=== PATIENT | female | born 1955 | race Caucasian/White ===

== ENCOUNTER → 2017-10-29 | Outpatient (CLI) | payer OTHER ==
[~2017-10-29] MED LIST: AMITRIPTYLINE H10 M1 PO; ASPIRIN EC81 M1 PO; ASPIRIN PO; CEPHALEXIN 500500 M3 PO; ELAVIL PO; ESTRACE1 MG PO; FISHOIL PO; GLUCOPHAGE500 MG PO; HYDROCODON-ACE1 EAC8 PO; HYDROCODONE-AP1 EA11 PO; HYDROCODONE-APA1 TA1 PO; LEVOTHROID PO; LEVOXYL88 MCG PO; LIDOCAINE VISC100 M1 SWISH&SPIT; LIPITOR 20 MG T20 M1 PO; LISINOPRIL10 MG PO; LISINOPRIL20 MG PO; LISINOPRIL5 MG PO; LORTAB 5-500 T1 EAC1 PO; METHADONE HCL5 MG PO; NEURONTIN 300300 M1 PO; NORCO 7.5-3251 EACH PO; OXYBUTYNIN 5 MG5 M1 PO; RELAFEN500 MG PO; VENLAFAXIN37.5 MG/1 PO; VOLTAREN GEL 1100 G2 TOP
--- NOTE | 2017-10-31 08:15 | PAINCON ---
[address] [address] PAIN MANAGEMENT CONSULTATION Name: EILEEN SIMMONS [facility] Nic#: [id number] Admission: 10/29/17 Attend Phys: Joanna Ortiz Discharge: Date of : 53 Report #: [id number] THIS REPORT FOR: //name// CC: Lamar Ovalles The patient is a 62-year-old female, long treated for RSD, right upper extremity, chronic pain syndrome requiring high risk complex medication management. The patient last seen in the pain clinic on 09/05/2017, continued on baseline medication including methadone 5 mg 1 at bedtime, hydrocodone 7.5/325 up to 4 a day. Last random drug screen approximately 1 year ago 12/11/2016, was positive for prescribed medications. The patient returns to pain clinic today for routine medication followup. 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 Today, we did again review her annual opiate consent to treat contract. This was signed and gone over with the patient. Buccal swab was accomplished today. It has been approximately 1 year since our last random drug screen (this was positive for prescribed medications and no others). The patient reports today that pain seems to be increasing somewhat with activity, increased activity over the holidays. She has had increasing burning dysesthesia in her wrist and hand. Unfortunately, she fell, simply tripped on the stairs and did possibly fracture her right third toe, had some significant ecchymosis in this area. She also bruised her right shoulder. There is some resolving ecchymosis more of a wilks tinge in that area. Slight decreased range of motion of the shoulder, did exacerbate some pain in the chronic right forearm where she has RSD type symptoms. Overall, the patient rates the pain a 2-3 on VAS with current medication. Again, after the fall 2 weeks ago, pain was worse. PHYSICAL EXAMINATION: Shows 4 feet 11 inches, 156 pounds female, BMI is 31.8 kilograms per meter squared. Blood pressure respirations 16. Alert and oriented to person, place and time, judged to be a reasonable historian. Cervical range of motion is full. Again, some ecchymosis over the right shoulder. Slight decreased range of motion in all [place] [address] PAIN MANAGEMENT CONSULTATION Name: EILEEN SIMMONS Room: [facility]#: [id number] Admission: 10/29/17 Attend Phys: Joanna Ortiz Discharge: Date of : 53 Report #: [id number] hyperpathia in the right wrist and forearm. Hand grasp is diminished on this side. Otherwise, modest endomorphic built. Gait is tandem. Alert and oriented to person, place and time. Does not use tobacco products. We reviewed the fact that opiate medications are being used to provide analgesia adequate to support activities of daily living, not attempting to achieve a specific pain score on the 0-10 Visual Analog Scale. The current opiate medications are providing sufficient analgesia to allow the patient to participate in activities of daily living. The patient is not exhibiting any aberrant behavior suggestive of drug diversion. The patient is not having any adverse reactions to medications. The patient is not suffering from daytime somnolence or mental acuity changes. The patient is managing opiate-induced constipation with appropriate iscw-dxb-bqeisot agents and dietary considerations. The patient was counseled on concern for caution with operating a motor vehicle while using opiate medications. A physical exam was performed and the patient's functional status was evaluated. All patients with back pain were advised against the bed rest greater than 4 days and were advised to return to normal activities. Pain score assessment was noted and the treatment plan was reviewed with the patient. All current medications, both prescribed and OTC were reviewed and reconciled on the electronic medical record. Tobacco screening was accomplished and smoking cessation was advised when indicated. BMI was noted and diet/exercise modification was recommended for all patients following outside normal parameters. I reviewed with the patient today their responsibilities to safeguard prescription medications, reviewed their responsibility to utilize medications only as prescribed by the physician. They are to seek and receive pain medications only from 1 physician group ( [facility]). They are to use 1 pharmacy and keep the clinic informed if they change pharmacies. Their responsibilities include making followup visits in a timely fashion and to avoid abrupt discontinuation of medication usage. Their responsibilities further include bringing their medications (bottles from the pharmacy with residual pills) to the visit for possible confirmation of pill counts and the patient understands it is their responsibility to submit to random drug screens to ensure both that the medications prescribed are present, and that no other controlled substances are present. All prescriptions provided today were generated electronically. ASSESSMENT: Neuropathic pain, right upper extremity, requiring high risk complex medication management. RECOMMENDATION: 1. We reviewed the SOAPP version 1.0. The patient scores 1. 2. Again, buccal drug swab, and we renewed her annual opiate consent to treat contract. [address] [address] PAIN MANAGEMENT CONSULTATION Name: EILEEN SIMMONS Room: [facility]#: [id number] Admission: 10/29/17 Attend Phys: Joanna Ortiz Discharge: Date of : 53 Report #: [id number] 3. We reviewed the paperwork from [place], noting that the patient has trouble reaching overhead, relatively unchanged from medications. We were queried whether I have followed patient's prescription monitoring program, unfortunately [place] is the only critical access hospital out of all that does not have a PNP. I have checked and there are no medications filled in the [place] site. I am not concerned at this time about opiate misuse. Again, the patient's score is low on the SOAPP questionnaire, and she has exhibited no aberrant behavior suggestive of drug diversion and has not had any early release request. The patient has been on methadone since 2008. Higher doses caused cognitive impairment. Lower doses had lack of efficacy. The patient has fallen i.e., the trip 2 weeks ago, though this is unrelated to cognitive changes with simply trip over an object on the stair. We will return to [place], they requested documentation. A specific answer to my attempting to wean her methadone dose or hydrocodone dose, the answers are no. We have trialled in the past with decreased functional ability and increased pain. She still scores because she is taking well below the 90 mEq of morphine dosing ceiling recommendations. Discharged in good and stable condition after approximately 30 minutes spent face to face with the patient, greater than 50% of time spent counseling the patient regarding appropriate use of medications and reviewing requested documentation. <ELECTRONICALLY SIGNED> By: Nadir Ovalels DO 10/31/17 0815 0756 [facility] Ovalles DO /rob
== END ==
LOC: M.PC 02:03
DX: G89.4 Chronic pain syndrome (principal); G90.511 Complex regional pain syndrome I of right upper limb; M79.1 Myalgia; Z79.899 Other long term (current) drug therapy

== ENCOUNTER → 2017-12-24 | Outpatient (CLI) | payer OTHER ==
--- NOTE | 2017-12-25 10:21 | PAINCON ---
[address] [address] PAIN MANAGEMENT CONSULTATION Name: EILEEN SIMMONS Room: [facility] Nic#: [id number] Admission: 12/24/17 Attend Phys: Joanna Ortiz Discharge: Date of : 53 Report #: [id number] THIS REPORT FOR: //name// CC: Lamar Ovalles DATE OF SERVICE: 12/24/2017 HISTORY OF PRESENT ILLNESS: The patient is a 62-year-old female typically treated for right upper extremity CRPS, neuropathic pain requiring complex medication management. Last seen in the pain clinic on 10/29/2017. The patient was continued on baseline medication including methadone 5 mg 1-2 at bedtime, hydrocodone 7.5/325 one tablet 3-4 times a day, limit 100 tablets for 30 days. Last visit, I had spent a good deal of time filling out paperwork for the patient's third green party management company [employer]. This was submitted 12/06/2017. I did a uhjg-hg-spag as well. We did receive a correspondence on 12/09/2017 noting that her insurance provider had approved her current medication including methadone 5 mg 1-2 at bedtime, hydrocodone 7.5/325 up to 4 a day. I have pointed out she had been on high dose of opiates back in 2008. High doses had caused cognitive impairment. Lower doses cause lack of efficacy. She is well below the 90 mEq of morphine ceiling dose recommendations. Current medications are enabling the patient to participate in activities of daily living. She has an opiate consent to treat contract, signed and reviewed annually. Last random drug screen on 08/27/2017 was positive for prescribed medications. The patient returns to the pain clinic today. We again had a prolonged visit reviewing therapeutic options. The patient was quite distressed as she received written note from [employer] who I assumed is the pharmacy provider stating that they question the patient's current medication. The patient today tells me again pain is generally well controlled with current medication. She continues to be physically active. She is a primary homemaker. She is seen in company of her who is supportive. 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 She does some chores around the farm as well. She notes, however, that right shoulder and arm is problematic primarily after activity. She has hyperpathia, allodynia about the right forearm and hand. She uses ice in the upper arm when pain becomes problematic. She rates the pain anywhere from 2-8 on a VAS. PHYSICAL EXAMINATION: GENERAL: Shows 4 feet 11 inches, 160-pound female, BMI is 31.6 kilograms per meter squared. VITAL SIGNS: Blood pressure 127/83, pulse 74, [place]ir[place] 18. [place] [address] PAIN MANAGEMENT CONSULTATION Name: EILEEN SIMMONS Room: [facility]#: [id number] Admission: 12/24/17 Attend Phys: Joanna Ortiz Discharge: Date of : 53 Report #: [id number] NEUROLOGIC: Alert and oriented to person, place and time, judged to be a reasonable historian. MUSCULOSKELETAL: Cervical range of motion is full. Right upper extremity has fairly good range of motion in the shoulder, slightly diminished at the elbow and wrist, though she is able to supinate and pronate. Does have some hyperpathia, allodynia about the palmar aspect of the hand, a little bit on the dorsum as well. Nails are intact. There are moderate skin changes, a little bit of dystrophy noted in the thenar eminence. Tinel's is negative. We reviewed the fact that opiate medications are being used to provide analgesia adequate to support activities of daily living, not attempting to achieve a specific pain score on the 0-10 Visual Analog Scale. The current opiate medications are providing sufficient analgesia to allow the patient to participate in activities of daily living. The patient is not exhibiting any aberrant behavior suggestive of drug diversion. The patient is not having any adverse reactions to medications. The patient is not suffering from daytime somnolence or mental acuity changes. The patient is managing opiate-induced constipation with appropriate wyry-pxa-woijdcc agents and dietary considerations. The patient was counseled on concern for caution with operating a motor vehicle while using opiate medications. A physical exam was performed and the patient's functional status was evaluated. All patients with back pain were advised against the bed rest greater than 4 days and were advised to return to normal activities. Pain score assessment was noted and the treatment plan was reviewed with the patient. All current medications, both prescribed and OTC were reviewed and reconciled on the electronic medical record. Tobacco screening was accomplished and smoking cessation was advised when indicated. BMI was noted and diet/exercise modification was recommended for all patients following outside normal parameters. I reviewed with the patient today their responsibilities to safeguard prescription medications, reviewed their responsibility to utilize medications only as prescribed by the physician. They are to seek and receive pain medications only from 1 physician group ( [facility]). They are to use 1 pharmacy and keep the clinic informed if they change pharmacies. Their responsibilities include making followup visits in a timely fashion and to avoid abrupt discontinuation of medication usage. Their responsibilities further include bringing their medications (bottles from the pharmacy with residual pills) to the visit for possible confirmation of pill counts and the patient understands it is their responsibility to submit to random drug screens to ensure both that the medications prescribed are present, and that no other controlled substances are present. All prescriptions provided today were generated electronically. ASSESSMENT: Neuropathic pain, right upper extremity requiring complex [facility] [address] [place] [address] PAIN MANAGEMENT CONSULTATION Name: EILEEN SIMMONS Jonathan Room: [facility]#: [id number] Admission: 12/24/17 Attend Phys: Joanna Ortiz Discharge: Date of : 53 Report #: [id number] medication management, stable on baseline medication. RECOMMENDATIONS: After a prolonged discussion with the patient today, greater than 50% of the 25-minute visit spent reviewing therapeutic options and discussing multiple correspondences from the patient's medical insurance claims specialist, we have elected to continue baseline medication unchanged including methadone 5 mg 1-2 at bedtime, hydrocodone 7.5/325, limit 100 tablets for 30 days. Again, reviewed last random drug screen on 11/26/2017 positive for prescribed medications. Discharged in good and stable condition. <ELECTRONICALLY SIGNED> By: Nadir Ovalles DO 12/25/17 1021 [id number] Ovalles DO /nt
== END ==
LOC: M.PC 03:37
DX: G90.511 Complex regional pain syndrome I of right upper limb (principal); M79.2 Neuralgia and neuritis, unspecified; Z79.899 Other long term (current) drug therapy

== ENCOUNTER → 2018-02-18 | Outpatient (CLI) | payer OTHER | LOC: M.RAD 07:33 | DX: Z12.31 Encounter for screening mammogram for malignant neoplasm of breast (principal) ==

== ENCOUNTER → 2018-02-18 | Outpatient (CLI) | payer OTHER ==
--- NOTE | 2018-02-19 09:37 | PAINCON ---
[address] [address] PAIN MANAGEMENT CONSULTATION Name: EILEEN SIMMONS [id number] Admission: 02/18/18 Attend Phys: Joanna Ortiz Discharge: Date of : 53 Report #: [id number] THIS REPORT FOR: //name// CC: Lamar Ovalles A 62-year-old female long treated for RSD, right upper extremity. 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 Subsequently, had right rotator cuff repair in 05/2008. Unfortunately, this failed and she had a revision in 07/2008. She has had ongoing neuropathic hyperpathia and allodynia in the right forearm radial aspect into the thumb since that time. She has significant limitation of right shoulder range of motion. Abduction is down to about 45 degrees. Extension is down to about 50 degrees. She has been stable on low dose opiate analgesics including methadone 5 mg 1 to 2 at bedtime, Voltaren gel topically, gabapentin 300 mg t.i.d., hydrocodone 7.5/325 one tablet up to 4 times a day, though she does use this on a nondaily basis. She returns to pain clinic today noting subjective pain score is 4-5 on a VAS. PHYSICAL EXAMINATION: Relatively unchanged, 4 feet, 11 inches, 157 pounds female, BMI is 31 kilograms per meter squared. Blood pressure 123/62, pulse 67, respirations 16. Cervical range of motion is full. Right arm again limited range of motion of the shoulder, 45 degrees abduction and 50 degrees extension. Hyperpathia and allodynia about the forearm down to the wrist and hand though she does have preserved strength in the biceps, triceps and wrist extension. Resistance testing; however, does exacerbate pain with light touch allodynia. Skin integument is, however, intact. We reviewed the fact that opiate medications are being used to provide analgesia adequate to support activities of daily living, not attempting to achieve a specific pain score on the 0-10 Visual Analog Scale. The current opiate medications are providing sufficient analgesia to allow the patient to participate in activities of daily living. The patient is not exhibiting any aberrant behavior suggestive of drug diversion. The patient is not having any adverse reactions to medications. The patient is not suffering from daytime somnolence or mental acuity changes. The patient is managing opiate-induced constipation with appropriate croh-mso-ndtfunb agents and dietary considerations. The patient was counseled on concern for caution with operating a motor vehicle while using opiate medications. A physical exam was performed and the patient's functional status was evaluated. All patients with back pain were advised against the bed rest greater than 4 days and were advised to return to normal activities. Pain score assessment was noted and the treatment plan was reviewed with [place] [address] PAIN MANAGEMENT CONSULTATION Name: EILEEN SIMMONS Room: [facility]#: [id number] Admission: 02/18/18 Attend Phys: Joanna Ortiz Discharge: Date of : 53 Report #: [id number] medications, both prescribed and OTC were reviewed and reconciled on the electronic medical record. Tobacco screening was accomplished and smoking cessation was advised when indicated. BMI was noted and diet/exercise modification was recommended for all patients following outside normal parameters. I reviewed with the patient today their responsibilities to safeguard prescription medications, reviewed their responsibility to utilize medications only as prescribed by the physician. They are to seek and receive pain medications only from 1 physician group ( [facility]). They are to use 1 pharmacy and keep the clinic informed if they change pharmacies. Their responsibilities include making followup visits in a timely fashion and to avoid abrupt discontinuation of medication usage. Their responsibilities further include bringing their medications (bottles from the pharmacy with residual pills) to the visit for possible confirmation of pill counts and the patient understands it is their responsibility to submit to random drug screens to ensure both that the medications prescribed are present, and that no other controlled substances are present. All prescriptions provided today were generated electronically. ASSESSMENT: Neuropathic pain, right upper extremity, status post rotator cuff tear surgery and disability. RECOMMENDATION: Continue hydrocodone 7.5/325 one tablet 3-4 times a day, limit 100 tablets. I have taken the liberty of writing for 2 months of current medication. Continue methadone 5 mg 1 to 2 at bedtime, limit 60 tablets. Again taken the liberty of writing for 2 months of current medication. Follow up at that time. I did discuss with the patient that I will be leaving the practice. We will endeavor to find another treating physician for her. Discharged in good and stable condition. <ELECTRONICALLY SIGNED> By: Nadir Ovalles DO 02/19/18 0937 [id number] Ovalles DO /nt
== END ==
LOC: M.PC 04:38
DX: G90.511 Complex regional pain syndrome I of right upper limb (principal); M79.2 Neuralgia and neuritis, unspecified; Z98.890 Other specified postprocedural states

== ENCOUNTER → 2018-04-15 | Outpatient (CLI) | payer OTHER ==
--- NOTE | 2018-04-16 07:56 | PAINCON ---
[facility] [address] [place] [address] PAIN MANAGEMENT CONSULTATION Name: EILEEN SIMMONS [id number] Admission: 04/15/18 Attend Phys: Joanna Ortiz Discharge: Date of : 53 Report #: [id number] THIS REPORT FOR: //name// CC: Lamar Ovalles DATE OF SERVICE: 04/15/2018 HISTORY OF PRESENT ILLNESS: The patient is a 62-year-old female, long treated for CRPS, right upper extremity requiring complex medication management. The patient had initial injury in the hospital requiring rotator cuff repair in 05/2008. Unfortunately, she required a subsequent revision 2 months later in 07/2008. Developed hyperpathia, allodynia and diaphoresis in the right upper extremity. He has been treated for RSD since that time. Last seen in pain clinic on 02/18/2018. Continued on methadone 5 mg 1-2 at bedtime, gabapentin 300 mg t.i.d. and hydrocodone 7.5/325 up to 3-4 a day. The patient is stable on his medications. No problems with daytime somnolence, mental acuity changes, constipation. To her credit, she continues to be quite physically active. 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 She also does a fair bit of gardening. Right upper extremity actually does not have any significant dystrophy, though she does have some hyperpathia and allodynia about the forearm and wrist. PHYSICAL EXAMINATION: GENERAL: Otherwise shows a pleasant 62-year-old female, alert and oriented to person, place and time, judged to be a reasonable historian. VITAL SIGNS: Stable, blood pressure 129/78, pulse 68, respirations 16, BMI is approximately 24 kilograms per meter squared. MUSCULOSKELETAL: Subjective pain score is 3 on a VAS. Does have a little pain in her left knee, though this appears to be some modest arthritis. No ballottable edema is noted. We reviewed the fact that opiate medications are being used to provide analgesia adequate to support activities of daily living, not attempting to achieve a specific pain score on the 0-10 Visual Analog Scale. The current opiate medications are providing sufficient analgesia to allow the patient to participate in activities of daily living. The patient is not exhibiting any aberrant behavior suggestive of drug diversion. The patient is not having any adverse reactions to medications. The patient is not suffering from daytime somnolence or mental acuity changes. The patient is managing opiate-induced constipation with appropriate [id number] agents and dietary considerations. The patient was counseled on concern [place] [address] PAIN MANAGEMENT CONSULTATION Name: EILEEN SIMMONS Room: [facility]#: [id number] Admission: 04/15/18 Attend Phys: Joanna Ortiz Discharge: Date of : 53 Report #: [id number] a motor vehicle while using opiate medications. A physical exam was performed and the patient's functional status was evaluated. All patients with back pain were advised against the bed rest greater than 4 days and were advised to return to normal activities. Pain score assessment was noted and the treatment plan was reviewed with the patient. All current medications, both prescribed and OTC were reviewed and reconciled on the electronic medical record. Tobacco screening was accomplished and smoking cessation was advised when indicated. BMI was noted and diet/exercise modification was recommended for all patients following outside normal parameters. I reviewed with the patient today their responsibilities to safeguard prescription medications, reviewed their responsibility to utilize medications only as prescribed by the physician. They are to seek and receive pain medications only from 1 physician group ( [facility]). They are to use 1 pharmacy and keep the clinic informed if they change pharmacies. Their responsibilities include making followup visits in a timely fashion and to avoid abrupt discontinuation of medication usage. Their responsibilities further include bringing their medications (bottles from the pharmacy with residual pills) to the visit for possible confirmation of pill counts and the patient understands it is their responsibility to submit to random drug screens to ensure both that the medications prescribed are present, and that no other controlled substances are present. All prescriptions provided today were generated electronically. ASSESSMENT: Neuropathic pain, right upper extremity, complex regional pain syndrome type 1, requiring complex medication management. RECOMMENDATIONS: Continue gabapentin 300 mg t.i.d., methadone 5 mg 1-2 at bedtime with hydrocodone 7.5/325 one tablet 3-4 times a day. I have taken the liberty of writing for 2 months of current medication. Suggested the patient contact Daniel, this is her disability managing entity. She will need to find another pain physician to manage her chronic medication use for pain. I am moving out of the treatment area. Again, the patient was given 2 months of current medication; this should be quantity sufficient for her worker's comp managing entity to find a new physician. <ELECTRONICALLY SIGNED> By: Nadir Ovalles DO 04/16/18 [id number] Ovalles DO /nt
== END ==
LOC: M.PC 04:14
DX: G90.511 Complex regional pain syndrome I of right upper limb (principal); M79.2 Neuralgia and neuritis, unspecified; Z79.899 Other long term (current) drug therapy

== ENCOUNTER → 2018-07-07 | Outpatient (CLI) | payer OTHER ==
--- NOTE | 2018-08-10 10:00 | PAINCON ---
[address] [address] PAIN MANAGEMENT CONSULTATION Name: SIMMONSEILEEN L [id number] Admission: 07/07/18 Attend Phys: Willa Yip MD Discharge: Date of : 53 Report #: [id number] THIS REPORT FOR: //name// CC: Lamar Yip DATE OF SERVICE: 07/07/2018 CHIEF COMPLAINT: Chronic regional pain syndrome involving the right arm. 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 After the patient delivered a baby, she assisted in rolling the patient from the operating room bed to the patient's bed. She noticed a pop, had pain and discomfort. Seen in the Emergency Room, was found to have some damage to her right shoulder. She underwent shoulder surgery. Noticed that the pain continued to be problematic. After additional evaluation in July of that year, she underwent a second surgery. States that the shoulder had "busted open." Since that time, she has developed reflex sympathetic dystrophy involving her right arm. She has recently undergone tooth extractions in the upper and lower portion of her mouth. This was about 2 weeks ago. She is contemplating getting some dentures. She feels that gabapentin as well as the Voltaren cream to her shoulders are quite beneficial. She was taking methadone. Because of the impending oral surgery, she stopped her methadone. Feels that she has weaned herself from this. Over 10-day period of time, she noticed some "rough times, but feels that she has gotten past that stage." At this juncture, she would only like to continue with hydrocodone. She states that she continues to be quite busy. 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 Tries to continue to move her frozen shoulder. Overall, things are going reasonably well and she would like to have her medications renewed. ALLERGIES: TETRACYCLINE, PEACH, STRAWBERRY. MEDICATIONS: 1. Lipitor 20 mg. 2. Voltaren gel 1% to the right shoulder area 4 times daily, which is quite helpful. 3. Neurontin 300 mg t.i.d. 4. Hydrocodone 7.5/325. 5. Levothyroxine 0.088 mg. 6. Zestril 5 mg. 7. Glucophage 500 mg b.i.d. 8. Oxybutynin 5 mg b.i.d. 9. Effexor [place] 37.5 [place] [address] PAIN MANAGEMENT CONSULTATION Name: TROYEILEEN L Room: [facility]#: [id number] Admission: 07/07/18 Attend Phys: Willa Yip MD Discharge: Date of : 53 Report #: [id number] PAST MEDICAL HISTORY: 1. Chronic regional pain syndrome, right shoulder. 2. Hypothyroidism. 3. Diabetes. 4. Hypertension. PAST SURGICAL HISTORY: The patient states that she had 13 surgeries. They include appendectomy, breast mass in 1984, hysterectomy in 1980, left knee in 2005, cholecystectomy 2000, bladder sling in 1996 and 2004, rotator cuff x 2 in 06/24/2008 and second surgery in 08/17/2008. SOCIAL HISTORY: She was an floor technician. REVIEW OF SYSTEMS: As per HPI. LABORATORY DATA: No new laboratory values are available at the time of our interview. PAIN CLINIC ASSESSMENT: 1. Osteoarthritic changes involving her right shoulder. Osteoarthritis, the patient is not being treated for osteoarthritis. 2. Height is 4 feet 11 inches, weight 155 pounds, BMI is 33. 3. Vital signs: Blood pressure 140/79, heart rate 65, respiratory rate 16, room air saturation 97%, temperature 97.9. 4. Pain clinic assessment is 02/03. 5. Fall risk. The patient has not fallen in the last 3 months. 6. Blood thinner. The patient is on her blood thinning medication. 5. Hypertension. The patient is being treated for hypertension. 6. Opioid therapy greater than 6 weeks. The patient does receive medications through the pain clinic and gets it from [facility]. 7. Risk assessment tool. 8. Functional assessment tool. 9. Recreational drug use. The patient denies use of recreational drugs. 10. Tobacco: The patient is not smoking. 11. Alcohol. The patient does not use alcohol on a frequent basis. PHYSICAL EXAMINATION: GENERAL: The patient is a well-developed, well-nourished female. She appears her stated age. She is alert and oriented x 3. Affect is appropriate. Speech is fluent. HEENT: Normocephalic, atraumatic. Extraocular eye muscles intact. Sclerae nonicteric. Mucous membranes are moist. The patient has had surgery with removal of upper as well as lower teeth. NECK: Without JVD or adenopathy. The patient's left arm strength is judged to be 5/5 for the major muscle groups. The right arm is decreased 4/5 [place] [address] PAIN MANAGEMENT CONSULTATION Name: EILEEN SIMMONS Room: [facility]#: [id number] Admission: 07/07/18 Attend Phys: Willa Yip MD Discharge: Date of : 53 Report #: [id number] strength. The patient has limited ability to abduct her arm. She is unable to abduct it to horizontal to the floor. Notes some decreased range of motion, carries her right arm in a somewhat dependent position with hanging to her side. IMPRESSION: 1. Chronic regional pain syndrome involving the right arm. 2. Chronic regional pain syndrome, right shoulder. 3. Hypothyroidism. 4. Diabetes. 5. Hypertension. RECOMMENDATIONS: We discussed treatment options with the patient. At this juncture, she feels that the methadone medication is not needed. She would like to continue with the hydrocodone. We will re-write the hydrocodone medication as well as the patient will continue with gabapentin. She finds that the Voltaren gel works quite well. We would recommend that she continue this and that it gives her more pain relief than oral medications at this juncture. She will follow up in the future as needed. A script for 3 months of medication has been written. She will call us if she has any problems. We would like to thank you for letting us participate in her care. We hope she continues to improve. <ELECTRONICALLY SIGNED> By: Willa Yip MD 08/10/18 [id number]. Manuel Yip MD /nt
== END ==
LOC: M.PC 04:47
DX: G90.511 Complex regional pain syndrome I of right upper limb (principal); I10 Essential (primary) hypertension; E11.9 Type 2 diabetes mellitus without complications; E03.9 Hypothyroidism, unspecified; Z79.899 Other long term (current) drug therapy

== ENCOUNTER → 2018-10-06 | Outpatient (CLI) | payer OTHER ==
--- NOTE | ~2018-10-06 | PAINCON ---
[address] [address] PAIN MANAGEMENT CONSULTATION Name: TROYEILEEN L [facility] [id number] Admission: 10/06/18 Attend Phys: Willa Yip MD Discharge: Date of : 53 Report #: [id number] THIS REPORT FOR: //name// CC: Lamar Yip DATE OF SERVICE: 10/06/2018 HISTORY: The patient is a 63-year-old female who has been followed in the pain clinic. As you may recall, she has had some problems with her right arm. 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 After the delivery, she the patient to the operating room cart. Noticed a pop in her arm. Continued to have pain and problems with her right shoulder since that time. Continues to have pain and rates it as a 7/10 at this juncture. Continues to try to move her arm in all ranges of motion. Has had surgery on her shoulder as you may recall. Has developed reflex sympathetic dystrophy type problems in her right arm. Continues to note some swelling in her arm, some swelling down in her hands. The patient feels the gabapentin and Voltaren cream are still helpful and beneficial. Continues to find methadone efficacious. She feels that the hydrocodone at this juncture is helpful. She is no longer taking the methadone. Feels that the medications are helpful. She is aware that the opioid medications can be problematic burnisher, she did note some difficulty with getting off the methadone. At this point, she would like to continue with her medication. [facility]. Has not had any problem with her current medications. States that fallen. She fell off the ladder putting up some Lesly items. Also, states that she fell down from stairs. Continues to use hot and cold packs to the affected area. ALLERGIES: TETRACYCLINE, PEACHES, STRAWBERRY. MEDICATIONS: 1. Lipitor 20 mg. 2. Voltaren gel 1% to the right shoulder area 4 times daily. 3. Neurontin 300 mg t.i.d. 4. Hydrocodone 7.5/325 mg. 5. Levothyroxine 0.088 mg. 6. Zestril 5 mg. 7. Glucophage 500 mg b.i.d. 8. Oxybutynin 5 mg b.i.d. 9. Effexor 37.5 mg. PAIN CLINIC ASSESSMENT/PQRS: 1. The patient has some changes involving the right shoulder with some arthritic changes. The patient is not being [place] [address] PAIN MANAGEMENT CONSULTATION Name: EILEEN SIMMONS Room: [facility]#: [id number] Admission: 10/06/18 Attend Phys: Willa Yip MD Discharge: Date of : 53 Report #: [id number] 2. Height 4 feet 11 inches, weight 157 pounds, BMI 31.8. 3. Vital Signs: Blood pressure 130/29, heart rate 82, respiratory rate 16, room air saturation 94%, temperature 98.2. 4. Pain intensity 7/10. 5. The patient has fallen on 2 occasions. States that she fell down a ladder putting up the Budding [employer]ologist ornaments. 6. Fell down some stairs. Has not sought medical attention. 7. Blood thinner. The patient is not on a blood thinning medication. 8. Hypertension. The patient has been treated for hypertension. 9. Opioid greater than 6 weeks. The [facility]. 10. Risk assessment tool, low for opioid use. 11. Functional assessment tool. 12. Recreational drug use: The patient denies. 13. Tobacco: The patient denies use of tobacco. 14. Alcohol. The patient rarely uses alcoholic beverages. PHYSICAL EXAMINATION: GENERAL: The patient is a well-developed, well-nourished female, appears her stated age. She is alert and oriented x 3. Affect is appropriate. Speech is fluent. HEENT: Normocephalic, atraumatic. Extraocular muscles intact. Sclerae nonicteric. Mucous membranes are moist. NECK: Without adenopathy or JVD. The patient has some pain and discomfort in the right shoulder with pain radiating down into her shoulder. Notes some swelling in the right arm as well as down in the right hand. Muscle strength in the right side judged to be 4+/5, left arm 5/5. Lower extremity muscle strength is judged to be 5/5 for the major muscle groups. The patient continues to carry her right arm in a dependent position at her side. IMPRESSION: 1. Chronic regional pain syndrome involving the right arm. 2. Chronic regional pain syndrome, right shoulder. 3. Hypothyroidism. 4. Diabetes. 5. Hypertension. RECOMMENDATIONS: We discussed treatment options with the patient. Risks and benefits of continued opioid medication use were discussed. They include possibility of dependence as well as tolerance. The patient overall feels that things are going reasonably well. She would like to continue with her medications. She has some pain and discomfort involving her left knee, which she states is popping. She is going to see an orthopedic surgeon in the near [address] [address] PAIN MANAGEMENT CONSULTATION Name: SIMMONSEILEEN Room: [facility] Nic#: [id number] Admission: 10/06/18 Attend Phys: Willa Yip MD Discharge: Date of : 53 Report #: [id number] future. We would like to thank you for letting us participate in her care. We hope she continues to improve. By: [id number]. Manuel Yip MD /PMT
== END ==
LOC: M.PC 09-29 09:20
DX: G90.511 Complex regional pain syndrome I of right upper limb (principal); E03.9 Hypothyroidism, unspecified; I10 Essential (primary) hypertension; E11.9 Type 2 diabetes mellitus without complications

== ENCOUNTER → 2018-12-29 | Outpatient (CLI) | payer OTHER ==
--- NOTE | ~2018-12-29 | PAINCON ---
[address] [place] [address] [address] PAIN MANAGEMENT CONSULTATION Name: TROYEILEEN RADHA Room: [facility] Lucero#: [id number] Admission: 12/29/18 Attend Phys: Willa Yip MD Discharge: Date of : 53 Report #: [id number] THIS REPORT FOR: //name// CC: Lamar Yip DATE OF SERVICE: 12/29/2018 CHIEF COMPLAINT: "I am still having pain in my left arm." HISTORY OF PRESENT ILLNESS: The patient is a 63-year-old female who has been followed in the Pain Clinic. She has pain in her right shoulder as well as some left knee pain. She has a new pain in the left shoulder area. Approximately 3 weeks ago, she noticed onset of this pain and discomfort. It is running down into her left elbow. She has some trepidation about having it evaluated. She is afraid that she may have to undergo an MRI. She barely was able to undergo an MRI for the right shoulder. Rates her pain as a 10/10 at this juncture. Has limited movement of her arm. As you may recall, she developed reflex sympathetic dystrophy of her right arm. This was while moving a patient. The patient was pulled from one side of the table to the other. She soon noticed a popping sensation in her arm. After that, she has been plagued by chronic right arm pain and has noted some left arm pain over the last 3 weeks. Feels that her medications are helpful. She did try methadone in the past. Has weaned off this medication and she elects not to use it. Finds that hydrocodone, Voltaren and gabapentin are beneficial. She has returned today with a desire to renew these medications. ALLERGIES: TETRACYCLINE, PEACHES, STRAWBERRY. CURRENT MEDICATIONS: Lipitor 20 mg, Voltaren gel 1% to the right shoulder area 4 times daily, Neurontin 300 mg t.i.d., hydrocodone 7.5 mg, levothyroxine 0.088 mg, Zestril 5 mg, Glucophage 500 mg b.i.d., oxybutynin 5 mg b.i.d., Effexor 37.5. PAIN CLINIC ASSESSMENT/PQRS: 1. The patient has changes involving the right shoulder with arthritic changes. The patient is not being treated for rheumatoid arthritis. 2. Height 4 feet 11 inches, weight 162 pounds, BMI is 32.3. 3. Vital Signs: Blood pressure 133/40, heart rate 82, respiratory rate 16, room air saturation is 96%, temperature 98.1. Pain intensity 10/10. 4. Fall risk. The patient has not fallen in the last 3 months. 5. Blood thinner. The patient is not on a blood thinning medication. 6. Hypertension. The patient is being treated for hypertension. 7. Opiates greater than 6 weeks. The patient [facility]. 8. Risk assessment tool, [place] [address] PAIN MANAGEMENT CONSULTATION Name: EILEEN SIMMONS Room: [facility]#: [id number] Admission: 12/29/18 Attend Phys: Willa Yip MD Discharge: Date of : 53 Report #: [id number] 9. Functional assessment tool. 10. Recreational drug use. The patient denies use of recreational drugs. 11. Tobacco: The patient denies use of tobacco. 12. Alcohol. The patient rarely uses alcoholic beverages. PHYSICAL EXAMINATION: GENERAL: The patient is a well-developed, well-nourished appearing female who is alert and oriented x 3. HEENT: Normocephalic, atraumatic. Extraocular eye muscles are intact. Sclerae nonicteric. Mucous membranes are moist. NECK: Without adenopathy or JVD. The patient has pain and discomfort in the right arm. Has limited range of motion in the left arm. Notes that there is pain between the area of expansion of the biceps from the arm to the shoulder area. Has some difficulty in rotating her arm in a circular motion as though she was polishing a car. IMPRESSION: 1. Chronic regional pain syndrome involving the right arm. 2. Chronic regional pain syndrome involving the right shoulder, new onset of pain and discomfort in the left arm. 3. Hypothyroidism. 4. Diabetes. 5. Hypertension. RECOMMENDATIONS: We discussed treatment options with the patient. At this juncture, we will continue with her hydrocodone 7.5 mg 1 p.o. q.i.d. She will also continue with Voltaren gel to the affected area and continue with gabapentin 300 mg p.o. t.i.d. A script for these medications have been rewritten. The patient will call us if she has any concerns. We have encouraged her to follow up with her orthopedic surgeon. Possibility of damage to her left shoulder area might be significant. We would recommend that she see him early rather than continue to do other activities and find that an earlier intervention would have been more beneficial. She states that she would. We explained that sometimes use of an open MRI can be beneficial. This might be an option for the patient should her MRI be needed. Sometimes open MRIs have less resolution than traditional MRIs. We would like to thank you for letting us participate in her care. We hope she continues to improve. By: [id number]. Manuel Yip MD /rob
== END ==
LOC: M.PC 10:00
DX: G89.4 Chronic pain syndrome (principal); I10 Essential (primary) hypertension; E11.9 Type 2 diabetes mellitus without complications; E03.9 Hypothyroidism, unspecified

== ENCOUNTER → 2019-04-22 | Outpatient (CLI) | payer OTHER ==
--- NOTE | 2019-04-28 14:27 | PAINCON ---
[address] [address] PAIN MANAGEMENT CONSULTATION Name: SIMMONSEILEEN RADHA Room: [facility] CECY Lucero#: [id number] Admission: 04/22/19 Attend Phys: Willa Yip MD Discharge: Date of : 53 Report #: [id number] THIS REPORT FOR: //name// CC: Lamar Yip DATE OF SERVICE: 04/22/2019 CHIEF COMPLAINT: Pain in the right shoulder, left knee as well. HISTORY: This patient is a 63-year-old female who has been followed in the pain clinic. As you recall, she has pain in her right shoulder. She has some pain in her left knee. She has pain in the right shoulder. She is considering options. At this point, she may need an MRI. She states that it costs $350 co-pay. She is not able to pay that at this juncture. Rates her pain as a 6/10. Normally, the pain can be as low as 2/10. She has history of reflex sympathetic dystrophy in her right arm. She was injured while moving a patient. States that she was on one side of the bed. She then helped to pull the patient and slide the patient to her bed. She notes a popping sensation in her arm. She has had pain and chronic discomfort since that time. She feels that her medications of hydrocodone and Voltaren in conjunction with gabapentin are helpful. She has returned today for renewal of her medications. She forgot when her last appointment was scheduled. As a result, she had to "stretch her medication use." She took her last pill this morning. This is why she has a pain radiating to 6/10. ALLERGIES: TETRACYCLINE, PEACHES, STRAWBERRIES. MEDICATIONS: Lipitor 20 mg, Voltaren gel 1% to the right shoulder area 4 times daily, Neurontin 300 mg t.i.d., hydrocodone 7.5 mg, levothyroxine 0.088 mg, Zestril 5 mg, Glucophage 50 mg b.i.d., oxybutynin 5 mg b.i.d., Effexor 37.5. PAIN CLINIC ASSESSMENT/PQRS: 1. The patient has changes involving her right arm secondary to arthritis. The patient is not being treated for rheumatoid arthritis. 2. Height 5 feet 4 inches, weight 156 pounds, BMI 31.5. 3. Vital Signs: Blood pressure 125/53, heart rate 81, respiratory rate 16, room air saturation 92%, temperature 97.9. 4. Pain intensity 6/10. 5. Fall history: The patient has not fallen in the last 3 months. 6. Blood thinner. The patient is not on a blood thinning medication. 7. Hypertension. The patient has not been treated for hypertension. 8. Diabetes. 9. Opioid therapy greater than 6 weeks. The patient receives her medication from one source, the pain clinic. 9. Risk assessment tool, [place] [address] PAIN MANAGEMENT CONSULTATION Name: EILEEN SIMMONS [id number] Admission: 04/22/19 Attend Phys: Willa Yip MD Discharge: Date of : 53 Report #: [id number] 10. Functional assessment tool. 11. Recreational drug use. The patient denies. 12. Tobacco: The patient denies. 13. Alcohol: The patient denies. PHYSICAL EXAMINATION: GENERAL: The patient is a well-developed, well-nourished white appearing female. She appears her stated age. She is alert and oriented x 3. Her affect is appropriate. Speech is fluent. HEENT: Normocephalic, atraumatic. Extraocular eye muscles intact. Sclerae nonicteric. Mucous membranes are moist. NECK: Without adenopathy or JVD. The patient has some limitation in movement of her right shoulder. Also, has some pain in the biceps area. Has difficulty rotating and moving her right shoulder. IMPRESSION: 1. Chronic regional pain syndrome involving the right shoulder/arm. 2. History of discomfort in the left arm. 4. Hypothyroidism. 5. Diabetes. 6. Hypertension. RECOMMENDATIONS: We discussed treatment options with the patient. At this juncture, she feels her medications are helpful. She is able to engage in activities that would be more problematic without their use. She feels that the medications are helpful, but not causing any problems with her sensorium or thinking. Feels the hydrocodone medications beneficial. She did run out of her medication and used it more sparingly. She notes an increase in pain and rates it as a 6/10, the day. She also feels the gabapentin is beneficial and finds use of Voltaren gel to her shoulder helpful. We will continue with the patient's medication regimen using B complex medical management of hydrocodone. She will continue with hydrocodone has been given a script for 75.5 mg 1 tablet 100 one tablet q. total 100 tablets have been dispensed. The patient will also continue with Voltaren gel to the affected area q.i.d. A script for Neurontin 300 mg 1 p.o. t.i.d. has also been rewritten. The patient will call us if she has any concerns. We would like to thank you for letting us participate in her care. We hope she continues to improve. <ELECTRONICALLY SIGNED> By: Willa Yip MD 04/28/19 1427 [id number] [id number]. Manuel Yip MD /[facility]
== END ==
LOC: M.PC 04:58
DX: M25.511 Pain in right shoulder (principal); G89.4 Chronic pain syndrome; E03.9 Hypothyroidism, unspecified; E11.9 Type 2 diabetes mellitus without complications; I10 Essential (primary) hypertension; Z88.8 Allergy status to other drugs, medicaments and biological substances; Z79.899 Other long term (current) drug therapy

== ENCOUNTER → 2019-05-27 | Outpatient (CLI) | payer OTHER | LOC: M.RAD 04-23 13:18 | DX: Z12.31 Encounter for screening mammogram for malignant neoplasm of breast (principal); M85.89 Other specified disorders of bone density and structure, multiple sites; I65.23 Occlusion and stenosis of bilateral carotid arteries; Z78.0 Asymptomatic menopausal state ==

== ENCOUNTER → 2019-07-15 | Outpatient (CLI) | payer OTHER ==
--- NOTE | 2019-07-19 09:16 | PAINCON ---
[address] [address] PAIN MANAGEMENT CONSULTATION Name: EILEEN SIMMONS Room: [facility] Nic#: [id number] Admission: 07/15/19 Attend Phys: Willa Yip MD Discharge: Date of : 53 Report #: [id number] THIS REPORT FOR: //name// CC: Lamar Yip DATE OF SERVICE: 07/15/2019 CHIEF COMPLAINT: "Here for medication renewal." HISTORY: The patient is a 63-year-old female who has been followed in the pain clinic for a number of years. As you may recall, she has chronic pain involving her right arm. 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 Since that time, she has had reflex sympathetic type problems with her shoulder. She feels that things are going reasonably well with her current medications. She has returned today for renewal of her medications. She still has quite a bit of dysfunction in the affected right arm. She is unable to use it to the level that she would like. She has rated her pain as a 5/10. Notes that the pain is worse and exacerbated with cold weather as well as with activity. Bending and twisting can be problematic. The patient notes the pain is somewhat improved with use of heat at times as well as cold. ALLERGIES: TETRACYCLINE, PEACHES STRAWBERRIES. CURRENT MEDICATIONS: Lipitor 20 mg, Voltaren gel 1% to the right shoulder area 4 times daily, Neurontin 300 mg t.i.d., hydrocodone 7.5 mg, levothyroxine 0.088 mg, Zestril 5 mg, Glucophage 50 mg b.i.d., oxybutynin 5 mg b.i.d., Effexor 37.5. mg. PAIN CLINIC ASSESSMENT AND PQRS: 1. The patient has some changes involving her right arm secondary to arthritis. She is not being treated for rheumatoid arthritis. 2. Height 4 feet 11 inches, weight 153 pounds, BMI is 31. 3. Vital Signs: Blood pressure 141/63, heart rate is 65, respiratory rate 16, room air saturation is 97%. 4. Pain intensity 10. 5. Fall history: The patient has not fallen in the last 3 months. 6. Blood thinner. The patient is not on a blood thinning medication. 7. Hypertension. The patient is not being treated for hypertension. 8. Diabetes. The patient is being treated for diabetes. 9. Opioids greater than 6 weeks. The patient receives medication from one source, the pain clinic. 10. Risk assessment tool, low for opioid use. 11. Functional assessment tool. 12. Recreational drug use. [place] [address] PAIN MANAGEMENT CONSULTATION Name: EILEEN SIMMONS Room: [facility]#: [id number] Admission: 07/15/19 Attend Phys: Willa Yip MD Discharge: Date of : 53 Report #: [id number] 13. Tobacco: The patient denies. 14. Alcohol: The patient denies. PHYSICAL EXAMINATION: GENERAL: The patient is a well-developed, well-nourished female. Appears her stated age. She is accompanied by her . She is alert and oriented x 3. Affect is appropriate. Speech is fluent. The patient has a blanket over her right shoulder, the room is somewhat cool. HEENT: Normocephalic, atraumatic. Extraocular eye muscles intact. Sclerae nonicteric. Mucous membranes are moist. NECK: Without adenopathy or JVD. The patient has limited motion in her right shoulder. She has pain and discomfort in the area of the biceps. Difficulty rotating and moving her right shoulder. She walks with her right arm pain at the side in a dependent position. IMPRESSION: 1. Chronic regional pain syndrome involving the right shoulder/arm. 2. History of discomfort in the left arm. 3. Hypothyroidism. 4. Diabetes. 5. Hypertension. RECOMMENDATIONS: We discussed the treatment with the patient. She feels that her medications are working reasonably well. She is aware that opioid medications can be helpful, but long-term can become less effective secondary to development of tolerance. Overall, she feels that the medications are working reasonably well. They enable her to engage in activities, she would not be able to without their use. She keeps her medications in a guarded area. A script for her medications of hydrocodone 7.5 mg one p.o. q. 4-6 hours, 100 tablets has been written for the next 3 months. She has also been provided with Voltaren gel 1% to the affected area q.i.d. She will continue with gabapentin 300 mg 1 p.o. t.i.d., there are 300 mg tablets. We would like to thank you for letting us participate in her care. She will call us if she has any concerns. We will continue with the patient's current medical regimen, which includes a complex medication management using opioids. <ELECTRONICALLY SIGNED> By: Willa Yip MD 07/19/19 0916 1402 [id number]. Manuel Yip MD /nt
== END ==
LOC: M.PC 04-01 05:31
DX: G89.4 Chronic pain syndrome (principal); I10 Essential (primary) hypertension; E03.9 Hypothyroidism, unspecified; E11.9 Type 2 diabetes mellitus without complications; Z88.8 Allergy status to other drugs, medicaments and biological substances; Z79.899 Other long term (current) drug therapy

== ENCOUNTER → 2019-10-07 | Outpatient (CLI) | payer OTHER ==
--- NOTE | 2019-10-13 13:30 | PAINCON ---
[address] [address] PAIN MANAGEMENT CONSULTATION Name: TROYEILEEN GARCIA Room: [facility] Nic#: [id number] Admission: 10/07/19 Attend Phys: Willa Yip MD Discharge: Date of : 53 Report #: [id number] THIS REPORT FOR: //name// CC: Lamar Yip DATE OF SERVICE: 10/07/2019 CHIEF COMPLAINT: Arm pain on the left and right side. HISTORY: The patient is a 64-year-old female who has been followed in the pain clinic because of chronic pain in her arm. Suffers from reflex sympathetic dystrophy type pain involving her right arm. As you may recall, she was at work. 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 She felt a pulling sensation and popping sensation. After that, she noticed reflex sympathetic dystrophy type pain involving her right shoulder. Continues to feel that her medications are helpful. She has returned today for renewal of her medications. She has noticed that because of the change in the weather, which has turned cold her pain level has increased. She has had some increased pain on the left side as well. The patient states that she was changing her bra. With movement of her arm she felt a popping sensation. She is having some pain that radiates down from the anterior deltoid area to the area of her biceps. She is scheduled to see her orthopedic doctor in the near future. ALLERGIES: TETRACYCLINE, PEACHES, STRAWBERRIES. CURRENT MEDICATIONS: Lipitor 20 mg, Voltaren gel 1% to the right shoulder area 4 times daily, Neurontin 300 mg t.i.d., hydrocodone 7.5 mg, levothyroxine 0.088 mg, Zestril 5 mg, Glucophage 50 mg b.i.d., oxybutynin 5 mg b.i.d., Effexor 37.5 mg. PAIN CLINIC ASSESSMENT AND PQRS: 1. The patient has some changes involving her right shoulder secondary to arthritis. She is not being treated for rheumatoid arthritis. 2. Height 4 feet 11-1/2 inches, weight 154 pounds, BMI is 31.5. 3. Vital Signs: Blood pressure 125/47, heart rate 76, respiratory rate was 18, room air saturation 96%, temperature 98.0. 4. Pain intensity 7-10/10. 5. Fall history: The patient has not fallen in the last 3 months. 6. Blood thinner. The patient is not on a blood thinning medication. 7. Hypertension. The patient is not being treated for hypertension. 8. Diabetes. The patient is being treated for diabetes. 9. Opioids greater than 6 weeks. The patient received medication from one source the pain clinic. 10. Risk assessment tool, [place] [address] PAIN MANAGEMENT CONSULTATION Name: EILEEN SIMMONS Room: [facility]#: [id number] Admission: 10/07/19 Attend Phys: Willa Yip MD Discharge: Date of : 53 Report #: [id number] 11. Functional assessment tool, low for opioid use. 12. Recreational drug use: The patient denies. 13. Tobacco: The patient denies use of tobacco. 14. Alcohol. The patient denies use of alcoholic beverages. PHYSICAL EXAMINATION: GENERAL: The patient is a well-developed, well-nourished female. Appears her stated age. She is alert and oriented x 3. Her affect is appropriate. Speech is fluent. She is accompanied by a female friend. She is alert and oriented x 3. Her affect is appropriate. Speech is fluent. HEENT: Normocephalic, atraumatic. Extraocular eye muscles intact. Sclerae nonicteric. Mucous membranes are moist. NECK: Without adenopathy or JVD. MUSCULOSKELETAL: The patient has some pain and discomfort involving the right arm. Has some decreased range of motion with movement of the arm and shoulder. Notes that there is some pain and discomfort in the area of her biceps. Difficulty rotating and moving the right shoulder range of motion. The patient has some pain and discomfort in the left shoulder. She has had some decreased range of motion in this area. Has pain in the anterior deltoid area and has noted some pain in the area of the biceps. States that she had felt a popping sensation before onset of this pain and discomfort. IMPRESSION: 1. Chronic regional pain syndrome involving the right shoulder and arm. 2. History of discomfort in the left arm with a popping sensation after trying to button her bra. 3. Hypothyroidism. 4. Diabetes. 5. Hypertension. RECOMMENDATIONS: We discussed treatment options with the patient. At this juncture, we will continue with her medications. She feels the medications are helpful. She is not having any complication from their use. She is aware that opioid medications can be problematic in certain people. She has taken the medication as prescribed. Keeps them in a guarded area. She is aware that 70,000 people as a result of overdosing on medications last year. She would like to continue with her current medications. A script for her medications has been written. She will continue with hydrocodone 7.5 mg one p.o. q. 4-6 hours p.r.n., total of 100 tablets have been prescribed. The patient will be prescribed a second month of hydrocodone. She will also continue with gabapentin 300 mg 1 [place] [address] PAIN MANAGEMENT CONSULTATION Name: EILEEN SIMMONS Room: [facility]#: [id number] Admission: 10/07/19 Attend Phys: Willa Yip MD Discharge: Date of : 53 Report #: [id number] We would like to thank you for letting us participate in her care. We hope she continues to improve. <ELECTRONICALLY SIGNED> By: Willa Yip MD 10/13/19 1330 1504 [id number]. Manuel Yip MD /[facility]
== END ==
LOC: M.PC 05:22
DX: G89.4 Chronic pain syndrome (principal); E03.9 Hypothyroidism, unspecified; I10 Essential (primary) hypertension; E11.9 Type 2 diabetes mellitus without complications

== ENCOUNTER → 2020-01-11 | Outpatient (CLI) | payer OTHER ==
--- NOTE | ~2020-01-11 | PAINCON ---
[address] [address] PAIN MANAGEMENT CONSULTATION Name: EILEEN SIMMONS Room: [facility].#: [id number] Admission: 01/11/20 Attend Phys: Willa Yip MD Discharge: Date of : 53 Report #: [id number] THIS REPORT FOR: //name// cc: Lamar Cronin MD, Katrina MD ~ THIS REPORT FOR: //name// CC: Lamar Yip DATE OF SERVICE: 01/11/2020 CHIEF COMPLAINT: Continued right shoulder and neck pain. HISTORY: The patient is a 64-year-old female who has been followed in the Pain Clinic. As you recall, she has reflex sympathetic dystrophy-like pain in her right arm. 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 The patient was in the operating room. She pulled the patient over, felt a popping sensation. She has an appointment with an Orthopedic surgeon in the near future. Does continue to note some swelling in her left arm. She feels that her pain medications are helpful, they keep things tolerable. Still does have limited range of motion in the shoulder areas. Her fell. He then developed some spinal cord symptoms. He was paralyzed from his waist down. He underwent emergency surgery at [facility]. He is doing somewhat better. ALLERGIES: TETRACYCLINE, PEACHES, STRAWBERRIES. CURRENT MEDICATIONS: Lipitor 20 mg, Voltaren gel 1% to the right shoulder area 4 times daily, Neurontin 300 mg t.i.d., hydrocodone 7.5 mg, levothyroxine 0.088 mg, Zestril 5 mg, Glucophage 50 mg b.i.d., oxybutynin 5 mg b.i.d., Effexor 37.5 mg. PAIN CLINIC ASSESSMENT AND PQRS: 1. The patient does have some pain involving her right shoulder as well as her left shoulder. She is not being treated for rheumatoid arthritis. 2. Height 4 feet 11 inches, weight 153 pounds, BMI is 30. 3. Vital signs: Blood pressure 136/80, heart rate 78, respiratory rate 16, room air saturation 97%, temperature 97.6. 4. Right arm pain /10, left arm pain 10/10. 5. Fall history: The patient has not fallen in the last 3 months. 6. Blood thinner. The patient is not on a blood-thinning medication. 7. Hypertension. The patient is not being treated for hypertension. 8. Diabetes. The patient is being treated for diabetes. 9. Opioids greater than 6 weeks. The patient receives medication from one source, [place] [address] PAIN MANAGEMENT CONSULTATION Name: EILEEN SIMMONS Room: [facility]#: [id number] Admission: 01/11/20 Attend Phys: Willa Yip MD Discharge: Date of : 53 Report #: [id number] 10. Risk assessment tool, low for opioid use. 11. Functional assessment tool, low for opioid. 12. Recreational drug use: The patient denies. 13. Tobacco: The patient denies. 14. Alcohol: The patient denies use of alcoholic beverages. PHYSICAL EXAMINATION: GENERAL: The patient is a well-developed, well-nourished female. Appears her stated age. She is alert and oriented x 3. Her affect is appropriate. Speech is fluent. HEENT: Normocephalic, atraumatic. Extraocular eye muscles intact. Sclerae nonicteric. Mucous membranes are moist. NECK: Without adenopathy or JVD. MUSCULOSKELETAL: Upper extremities: Arm pain as well as pain on the left arm which she rates as 10/10, right side 3/10. The patient has difficulty with rotation of her shoulder and in range of motions. The patient has pain and discomfort in the left shoulder. Neeses some decreased range of motion in this area. Had pain in the anterior deltoid area and noted to have pain in the biceps. States that she felt a popping sensation before the onset of the pain and discomfort. IMPRESSION: 1. Chronic regional pain syndrome involving the right shoulder and arm. 2. Left shoulder pain. 3. History of hypothyroidism. 4. Diabetes. 5. Hypotension. RECOMMENDATIONS: We discussed treatment options with the patient. Risks and benefits of opioid medication were discussed. The patient feels that these medications at this juncture continue to be helpful. She has taken the medication as prescribed. She is aware that these medications can become less effective as time goes on. Overall, she feels things are going better. She is having more pain in the left arm. She is scheduled to see an Orthopedic surgeon regarding her arm pain here in the next few days. She would like to have her medications renewed. A script for hydrocodone 7.5 mg 1 p.o. q.4-6 hours has been written. A total of 100 tablets have been provided. The patient will also continue with gabapentin 300 mg 1 p.o. t.i.d. She will use the Voltaren gel on her affected shoulder. We would like to thank you for letting us participate in her care. We hope she continues to improve. By: [id number] [id number]. Manuel Yip MD /rob
== END ==
LOC: M.PC 09:27
DX: M54.2 Cervicalgia (principal); M25.511 Pain in right shoulder; E11.9 Type 2 diabetes mellitus without complications; E03.9 Hypothyroidism, unspecified; G89.4 Chronic pain syndrome

== ENCOUNTER → 2020-04-25 | Outpatient (CLI) | payer OTHER ==
[~2020-04-25] MED LIST changes: +NEURONTIN300 MG PO
--- NOTE | 2020-05-04 15:40 | PAINCON ---
[address] [address] PAIN MANAGEMENT CONSULTATION Name: EILEEN SIMMONS Room: [facility].#: [id number] Admission: 04/25/20 Attend Phys: Willa Yip MD Discharge: Date of : 53 Report #: [id number] THIS REPORT FOR: //name// cc: Lamar Cronin MD, Katrina MD ~ THIS REPORT FOR: //name// CC: Lamar Yip DATE OF SERVICE: 04/25/2020 CHIEF COMPLAINT: "I had my left shoulder surgery." HISTORY: The patient is a 64-year-old female who has been followed in the pain clinic because of chronic pain and discomfort. She has had pain involving her shoulders. The left shoulder has been quite problematic. She recently had left rotator cuff surgery. She found that continued to be more and more problematic and needed to undergo surgery. As you may recall, she had reflex sympathetic dystrophy like discomfort in her right arm. This was incurred while moving a patient. The patient was in the operating room. She pulled the patient over and felt a popping sensation. She continued to have pain and discomfort. She also noted some swelling in the left arm. She has undergone surgery for the left shoulder problem. ALLERGIES: TETRACYCLINE, PEACHES, STRAWBERRIES. CURRENT MEDICATIONS: Lipitor 20 mg, Voltaren gel 1% on the right shoulder area 4 times daily, Neurontin 300 mg t.i.d., hydrocodone 7.5 mg, levothyroxine 0.088 mg, Zestril 5 mg, Glucophage 5 mg b.i.d., oxybutynin 5 mg b.i.d., and Effexor 37.5 mg. PAIN CLINIC ASSESSMENT AND PQRS: 1. The patient does have some pain involving her right shoulder as well as the left shoulder, which has recently had an orthopedic repair. The patient is not being treated for rheumatoid arthritis. 2. Height 4 feet 11 inches, weight 151 pounds, BMI is 30. 3. Vital signs: Blood pressure is 128/75, heart rate 72, respiratory rate 16, room air saturation 95%, temperature is 97.4. 4. Pain intensity 5/10. 5. Fall history: The patient has not fallen in the last 3 months. 6. Blood thinner. The patient is not on a blood thinning medication. 7. Hypertension. The patient is not being treated hypertension. 8. Diabetes. The patient is being treated for diabetes. 9. Opioids greater than 6 weeks. The patient receives medication from one source, [place] [address] PAIN MANAGEMENT CONSULTATION Name: EILEEN SIMMONS Room: [facility].#: [id number] Admission: 04/25/20 Attend Phys: Willa Yip MD Discharge: Date of : 53 Report #: [id number] 10. Risk assessment tool, low for opioid use. 11. Functional assessment tool, low for opioids. 12. Recreational drug use. The patient denies. 13. Tobacco: The patient denies. 14. Alcohol. The patient denies frequent use of alcoholic beverages. PHYSICAL EXAMINATION: GENERAL: The patient is a well-developed female. She appears her stated age. She is alert and oriented x 3. Her affect is appropriate. Speech is fluent. HEENT: Normocephalic, atraumatic. Extraocular eye muscles intact. Sclerae nonicteric. Mucous membranes are moist. NECK: Without adenopathy or JVD. MUSCULOSKELETAL: The patient has a sling on the left arm. She does have some pain and discomfort in this postop time. Surgery was 2 weeks ago. IMPRESSION: 1. Chronic regional pain syndrome involving the right shoulder and arm. 2. Left shoulder repair, status post rotator cuff repair 2 weeks ago on the left. 3. History of hypothyroidism. 4. Diabetes. 5. Hypotension. RECOMMENDATIONS: We discussed treatment options with the patient. At this juncture, we will continue with her medications. A script for her medications have been provided. The patient will continue with hydrocodone 7.5 mg one p.o. q. 4-6 hours. She will also continue with gabapentin 300 mg 1 p.o. t.i.d. She finds that the Voltaren gel continues to be helpful and she will continue with that. She is aware that opioid medications can become less effective as time goes on with the development of tolerance. She is not showing signs of addiction. She has taken the medication as prescribed. She will call us if she has any concerns. We would like to thank you for letting us participate in her care. We hope she continues to have great progress with her postoperative recovery. <ELECTRONICALLY SIGNED> By: Willa Yip MD 05/04/20 1540 1450 [id number]. Manuel Yip MD /nt
== END ==
LOC: M.PC 04:34
PROVIDERS: ATTEND Anesthesiology Pain Medicine
DX: M25.511 Pain in right shoulder (principal); M25.512 Pain in left shoulder; G89.4 Chronic pain syndrome; E11.9 Type 2 diabetes mellitus without complications; I95.9 Hypotension, unspecified; F11.20 Opioid dependence, uncomplicated; Z79.899 Other long term (current) drug therapy; Z86.39 Personal history of other endocrine, nutritional and metabolic disease

== ENCOUNTER → 2020-07-18 | Outpatient (CLI) | payer OTHER ==
[~2020-07-18] MED LIST changes: +[UNRECOGNIZED DRUG - OTHER] PO
--- NOTE | ~2020-07-18 | PAINCON ---
[address] [address] PAIN MANAGEMENT CONSULTATION Name: EILEEN SIMMONS Room: [facility].#: [id number] Admission: 07/18/20 Attend Phys: Willa Yip MD Discharge: Date of : 53 Report #: [id number] THIS REPORT FOR: //name// cc: Lamar Cronin MD, Katrina MD ~ THIS REPORT FOR: //name// CC: Lamar Yip DATE OF SERVICE: 07/18/2020 CHIEF COMPLAINT: Right shoulder pain and neck pain. HISTORY: The patient is a 64-year-old female who has been followed in the pain clinic. As you may recall, she has pain involving her left shoulder. She has rotator cuff discomfort. She reports losing about 15 pounds over the last few weeks because of stress and diarrhea. She continues to deal with workmen's compensation. She has not been given all her medications. They have rejected some. She rates her pain score today as a 2/10. She feels overall that the medications are helpful. She has undergone surgery on her left shoulder. ALLERGIES: TETRACYCLINE, PEACHES, STRAWBERRIES. CURRENT MEDICATIONS: Lipitor 20 mg, Voltaren gel 1% to the right shoulder area 4 times daily, Neurontin 300 mg t.i.d., hydrocodone 7.5 mg, levothyroxine 0.88 mg, Zestril 5 mg, Glucophage 5 mg b.i.d., oxybutynin 5 mg b.i.d., Effexor 37.5. PAIN CLINIC ASSESSMENT AND PQRS: 1. The patient does have some pain involving her shoulders. She is not being treated for rheumatoid arthritis. 2. Height 4 feet 11 inches, weight 141 pounds, BMI is 28. 3. Vital signs: Blood pressure 138/83, heart rate 85, respiratory rate 18, room air saturation 96%, temperature 97.6. 4. Pain intensity 12/06. 5. Fall history: The patient has not fallen in the last 3 months. 6. Blood thinner: The patient is not on a blood thinning medication. 7. Hypertension: The patient is not being treated for hypertension. 8. Diabetes: The patient is being treated for diabetes. 9. Opioids greater than 6 weeks: The patient receives medication from the pain clinic. 10. Risk assessment tool: Low for opioid use. 11. Functional assessment tool: Reviewed. 12. Recreational drug use: The patient denies. 13. Tobacco: The patient denies. 14. Alcohol: The patient denies frequent [place] [address] PAIN MANAGEMENT CONSULTATION Name: EILEEN SIMMONS Room: [facility]#: [id number] Admission: 07/18/20 Attend Phys: Willa Yip MD Discharge: Date of : 53 Report #: [id number] PHYSICAL EXAMINATION: GENERAL: The patient is a well-developed, well-nourished female. She appears her stated age. She is alert and oriented x 3. Her affect is appropriate. Speech is fluent. HEENT: Normocephalic, atraumatic. Extraocular eye muscles intact. Sclerae nonicteric. Mucous membranes are moist. NECK: Without adenopathy or JVD. MUSCULOSKELETAL: The patient has some pain and discomfort involving her shoulders. The patient has pain in the right shoulder and in the neck area. IMPRESSION: 1. Chronic regional pain syndrome involving the right shoulder and arm. 2. Left shoulder repair, status post rotator cuff repair. 3. History of hypothyroidism. 4. Diabetes. 5. Hypertension. 6. Stress associated with workmen's compensation declining medications. RECOMMENDATIONS: We discussed treatment options with the patient. At this juncture, we will continue with her medications. A script for her medications have been written and sent to her pharmacy. She will call us if she has any concerns. She feels her medications continue to be helpful. She is active. She is feeding the goats. This somewhat causes more pain and discomfort involving her shoulders. The patient is aware that opioid medications can become less effective as time goes on because of development of tolerance. She keeps her medications in a guarded area. We would like to thank you for letting us participate in her care. We hope she gets the problems with workmen's compensation worked out. By: [id number]. Manuel Yip MD /MACKENZIE
== END ==
LOC: M.PC 11:00
PROVIDERS: ATTEND Anesthesiology Pain Medicine
DX: M54.2 Cervicalgia (principal); M25.511 Pain in right shoulder; E03.9 Hypothyroidism, unspecified; E11.9 Type 2 diabetes mellitus without complications; I10 Essential (primary) hypertension; G89.29 Other chronic pain; Z79.899 Other long term (current) drug therapy; Z88.8 Allergy status to other drugs, medicaments and biological substances

== ENCOUNTER → 2020-07-18 | Outpatient (CLI) | payer OTHER | LOC: M.RAD 11:19 | PROVIDERS: ATTEND Family Medicine | DX: Z12.31 Encounter for screening mammogram for malignant neoplasm of breast (principal) ==